=== PATIENT | female | born 1990 | race Asian ===

== ENCOUNTER 2024-01-01 10:20 | Outpatient (REF) | payer OTHER, SELFPAY ==
--- NOTE | ~2024-01-01 | US_ITS ---
EXAMINATION: US PELVIS CLINICAL INFORMATION: Irregular menses. COMPARISON: None available. TECHNIQUE: Ultrasound of the pelvis is performed using both transabdominal and transvaginal transducers along with Doppler. Transvaginal imaging is performed due to inadequate visualization transabdominally. FINDINGS: The uterus measures 8.3 x 3.8 x 4.5 cm. The endometrial stripe measures 10 mm in thickness. No discrete endometrial lesion is seen. The myometrium is heterogeneous without focal fibroid and appears hypervascular on color Doppler. The right ovary measures 2.9 mL. The left ovary measures 4.3 mL. The ovaries appear normal. US/US pelvic and transvaginal IMPRESSION: The myometrium is heterogeneous and appears hypervascular on color Doppler. A discrete lesion is not seen. This may reflect adenomyosis. Consider MRI of the pelvis without and with intravenous contrast.
== END 2024-01-01 10:21 | disposition home or self-care (01) ==
LOC: HO.UMASIMG 10:20
PROVIDERS: Visit Provider Nurse Practitioner
DX: N92.6 Irregular menstruation, unspecified (principal)
CPT/HCPCS: 76830; 76856